=== PATIENT | female | born 1965 | race Caucasian/White ===

== ENCOUNTER 2017-03-19 10:24 | Outpatient (CLI) | payer OTHER | END 2017-03-19 17:13 | disposition home or self-care (01) | LOC: SCA 10:24 | PROVIDERS: ATTEND Specialist | DX: Z01.818 Encounter for other preprocedural examination (principal) | CPT/HCPCS: 93005 ==

== ENCOUNTER 2017-04-29 09:17 | Day surgery (SDC) | payer OTHER ==
[~2017-04-29] VITALS: Ht 162.6 cm; Wt 54.4 kg
[~2017-04-29 09:17] MED LIST: CEFAZOLIN 1 GM IVPB PREMIX 50 ML IV ONE
[2017-04-29] MEDS ORDERED: LR 1,000 ML IV.SOLN IV ONE (10:27)
[2017-04-29] MEDS ORDERED: MIDAZOLAM HCL 5 MG/5 ML VIAL IVP ONE (10:27)
[2017-04-29] MEDS ORDERED: KETOROLAC TROMETHAMINE 30 MG VIAL IVP ONE ×2 (10:27→15:00)
[2017-04-29] MEDS ORDERED: SEVOFLURANE 15 MIN GAS INH ONE ×2 (10:27)
[2017-04-29] MEDS ORDERED: DEXAMETHASONE SOD PHOSPHATE 4 MG/ML VIAL IVP ONE (10:27)
[2017-04-29] MEDS ORDERED: BUPIVACAINE /PF 0.5% 30 ML VIAL INJ ONE (10:27)
[2017-04-29] MEDS ORDERED: LIDOCAINE/EPI 1% 1:100000 20 ML VIAL INJ ONE (10:27)
[2017-04-29] MEDS ORDERED: PROPOFOL 200MG/ 20ML VIAL (DIPRIVAN) IV ONE (10:27)
[2017-04-29] MEDS ORDERED: NS IRRIG SOLN 1000 ML IR ONE (10:27)
[2017-04-29] MEDS ORDERED: METOCLOPRAMIDE HCL 10 MG/2 ML VIAL IVP ONE (10:27)
[2017-04-29] MEDS ORDERED: fentaNYL CITRATE 250 MCG/5 ML AMP IV ONE (10:27)
[2017-04-29] MEDS ORDERED: LR 1,000 ML IV ONE (10:59)
[2017-04-29] MEDS ORDERED: NALBUPHINE HCL 10 MG/ML AMP IVP PRN (11:00)
[2017-04-29] MEDS ORDERED: DIPHENHYDRAMINE INJ 50 MG/ML VIAL IVP PRN (11:00)
[2017-04-29] MEDS ORDERED: fentaNYL CITRATE/PF 100 MCG/2 ML AMP IVP PRN (11:00)
[2017-04-29] MEDS ORDERED: ONDANSETRON HCL 4 MG/2 ML VIAL IVP PRN ×3 (11:00→11:30)
[2017-04-29] MEDS ORDERED: NALOXONE HCL 0.4 MG/ML AMP (NARCAN) IVP PRN (11:00)
[2017-04-29] MEDS ORDERED: ePHEDrine sulfate 50 MG/ML VIAL IVP PRN (11:00)
[2017-04-29] MEDS ORDERED: OXYCODONE/ACETAMINOPHEN 5-325 TABLET PO PRN ×2 (11:30)
[2017-04-29] MEDS ORDERED: HYDROcodone/ACETAMIN 5-325 MG TAB (NORCO/ VICODIN) PO PRN (11:30)
[2017-04-29 12:43] VITALS: BP_SYST 111
== END 2017-04-29 16:00 | disposition home or self-care (01) ==
LOC: SDS 09:17 → SMU 09:18 → SDS 16:00
PROVIDERS: ATTEND Specialist
DX: N81.6 Rectocele (principal); N81.10 Cystocele, unspecified; N95.2 Postmenopausal atrophic vaginitis; M81.0 Age-related osteoporosis without current pathological fracture; Z87.891 Personal history of nicotine dependence
CPT/HCPCS: 56810; 57260; 88305; J0690; J1100; J1885; J2250; J2704; J2765; J3010; J3490; J7120